=== PATIENT | male | born 1945 | race Caucasian/White ===

== ENCOUNTER 2017-04-18 12:34 | Day surgery (SDC) | payer MEDICARE ==
[2017-04-05 10:30] LABS: HEMATOCRIT 42.8 % (37.9-51.0); HEMOGLOBIN 14.8 g/dL (13.5-17.0); HGB HCT DIFFERENCE 1.6; MEAN CORPUSCULAR HEMOGLOBIN 32.8 pg (27.0-33.4); MEAN CORPUSCULAR HGB CONC 34.6 g/dL (32.0-36.0); MEAN CORPUSCULAR VOLUME 95 fl (80-97); RED BLOOD COUNT 4.51 10^6/uL (4.35-5.55); RED CELL DISTRIBUTION WIDTH 12.9 % (11.5-14.0); WHITE BLOOD COUNT 5.5 10^3/uL (4.0-10.5)
[2017-04-05 10:46] LABS: ANION GAP 14 (5-19); BLOOD UREA NITROGEN 18 mg/dL (7-20); CALCIUM 9.3 mg/dL (8.4-10.2); CARBON DIOXIDE 25 mmol/L (22-30); CHLORIDE 108 mmol/L (98-107); CREATININE RESULT 1.13 mg/dL (0.52-1.25); GLUCOSE 75 mg/dL (75-110); POTASSIUM 4.4 mmol/L (3.6-5.0); SODIUM 146.6 mmol/L (137-145)
--- NOTE | 2017-04-05 10:58 | EKG REPORT ---
SEVERITY:- OTHERWISE NORMAL ECG - SINUS BRADYCARDIA NONSPECIFIC ST-T CHANGES : Confirmed by: Reinaldo Muhammad 05-Apr-2017 10:56:57
[~2017-04-18 12:34] MED LIST: ACETAMINOPHEN 325 MG TABLET PO PRN; CEFAZOLIN 1 GM/D5W RTU 1 GM/50 ML RTUPB IV PRN; DEXAMETHASONE SOD PHOSPHATE INJ 4 MG/1 ML VIAL ONE; LACTATED RINGERS 1000 ML IV PRN; LIDOCAINE 0.5% INJ-PF (5 MG/ML) 50 ML SDV SUBCUT PRN; LIDOCAINE 2% INJ-PF (20 MG/ML) 2 ML AMPUL ONE; ONDANSETRON HCL INJ/PF 4 MG/2 ML SDV ONE; SUCCINYLCHOLINE CHLORIDE INJ 200 MG/10 ML VIAL ONE
[2017-04-18] MEDS ORDERED: BUPIVACAINE HCL 0.25 % INJ/PF (2.5 MG/1 ML) 30 ML VIAL ONE (16:56)
[2017-04-18] MEDS ORDERED: FENTANYL CITRATE INJ/PF 100 MCG/2 ML AMPUL ONE (17:01)
[2017-04-18] MEDS ORDERED: HYDROMORPHONE HCL INJ/PF 2 MG/ML AMPULE ONE (17:02)
[2017-04-18] MEDS ORDERED: MIDAZOLAM 2 MG/2 ML INJ ONE (17:02)
[2017-04-18] MEDS ORDERED: ACETAMINOPHEN 100 ML IV ONE (17:02)
[2017-04-18] MEDS ORDERED: PROPOFOL INJ 200 MG/20 ML VIAL IV ONE (17:02)
[2017-04-18] MEDS ORDERED: DIPHENHYDRAMINE HCL 50 MG/ML VIAL IV PRN (17:50)
[2017-04-18] MEDS ORDERED: PROMETHAZINE HCL INJ 25 MG/1 ML VIAL IV PRN (17:50)
[2017-04-18] MEDS ORDERED: FENTANYL CITRATE INJ/PF 100 MCG/2 ML AMPUL IV PRN ×3 (17:50)
[2017-04-18] MEDS ORDERED: MORPHINE SULFATE 10 MG/ML INJ IV PRN (17:50)
--- NOTE | 2017-04-18 18:32 | Operative Report ---
Operative Report DATE OF SURGERY: 04/18/17 PREOPERATIVE DIAGNOSIS: Left inguinal hernia POSTOPERATIVE DIAGNOSIS: Left inguinal hernia OPERATION: Left inguinal hernia repair with mesh SURGEON: BROCK ALVARES ANESTHESIA: GA TISSUE REMOVED OR ALTERED: None COMPLICATIONS: None ESTIMATED BLOOD LOSS: Minimal INTRAOPERATIVE FINDINGS: Left direct inguinal hernia PROCEDURE: Informed consent was obtained. Patient was brought to the operating room placed on the operating room table in the supine position. After satisfactory induction of general anesthesia, patient's left groin was prepped and draped in usual sterile fashion. A transverse left groin incision was made. Dissection was carried down and the external oblique was opened along its fascial fibers thus opening the external inguinal ring. The cord was mobilized at the pubic tubercle. Dissection at the anterior aspect of the cord revealed no indirect hernia sac. However there was a direct inguinal hernia and the herniated content was dissected away. It was inverted back into the preperitoneal space using mattressing Vicryl sutures. Couple of branches of the iliohypogastric nerves would have been in the way of the mesh repair therefore they were taken by clamping dividing and tying. Mesh repair was performed with [employer]idien pro- access developer mesh. The sling ends were brought back together in a sling-like configuration thus re-creating the internal inguinal ring. The mesh laid flat with excellent coverage. A single fixation suture was placed at the pubic tubercle. Hemostasis appeared excellent. Marcaine was injected. The external oblique was closed over the repair and the cord structures using running Vicryl suture. Amber's fascia was closed with interrupted Vicryl sutures. Skin was closed with subcuticular running Monocryl suture. Patient tolerated procedure well with no apparent complications and was taken to the recovery area in stable condition.
[2017-04-18] MEDS ORDERED: OXYCODONE-ACETAMINOPHEN 5-325 MG TABLET PO PRN (18:34)
[2017-04-18] MEDS ORDERED: RINGERS SOLUTION,LACTATED 1,000 ML IV PRN (18:34)
[2017-04-18] MEDS ORDERED: ONDANSETRON HCL INJ/PF 4 MG/2 ML SDV IV PRN (18:34)
--- NOTE | 2017-04-18 18:34 | PDOC DISCHARGE SUMMARY ---
Discharge Summary (SDC) - Discharge Final Diagnosis: Left inguinal hernia Date of Surgery: 04/18/17 Discharge Date: 04/18/17 Condition: Good Treatment or Instructions: Underwent left inguinal hernia repair with mesh. May discharge patient home when met discharge criteria. Follow-up with me in 2 weeks. Stay active but avoid strenuous activity. May shower in 2 days. Keep Steri-Strips on. Prescriptions: Oxycodone HCl/Acetaminophen [Percocet 5-325 mg Tablet] 1 tab PO ASDIR PRN #25 tablet PRN Reason: Referrals: EFRAIN VALENTIN JR, MD [Primary Care Provider] - Discharge Diet: As Tolerated Discharge Activity: Activity As Tolerated - Stay active but avoid strenuous activity. Report the Following to Your Physician Immediately: Fever over 101 Degrees, Unusual Bleeding, Redness, Drainage-Foul Smelling
[2017-04-18 20:29] VITALS: BP 150/65
== END 2017-04-18 21:00 | disposition home or self-care (01) ==
LOC: OROUT 12:34 → 4N 19:44 → OROUT 21:00
PROVIDERS: ATTEND Surgery
PROC: 0YU60JZ Supplement Left Inguinal Region with Synthetic Substitute, Open Approach (ICD-10-PCS; principal; 2017-04-18 15:00)
DX: K40.90 Unilateral inguinal hernia, without obstruction or gangrene, not specified as recurrent (principal); E78.00 Pure hypercholesterolemia, unspecified; I10 Essential (primary) hypertension; F17.210 Nicotine dependence, cigarettes, uncomplicated; E11.9 Type 2 diabetes mellitus without complications; Z95.1 Presence of aortocoronary bypass graft; Z79.899 Other long term (current) drug therapy; Z79.82 Long term (current) use of aspirin; I25.2 Old myocardial infarction
CPT/HCPCS: 93005; 36415; 82962; 85027; 80048; 93010; 49505; C1781; J2250; J0690; J1100; J3010; J1170; J0330; J2405; J2704; J0131; J3490; 830